=== PATIENT | female | born 1970 | race Caucasian/White ===

== ENCOUNTER 2017-09-11 18:34 | Emergency (ER) | payer OTHER ==
[2017-09-11 18:42] VITALS: BMI 22.6
[2017-09-11] MEDS ORDERED: ALBUTEROL SO4 2.5/IPRATROPIUM 0.5 INH SOL 3 ML VIAL.NEB. NEB ONE ×3 (18:47→20:07)
--- NOTE | 2017-09-11 19:19 | PDOC ---
History of Present Illness - General Chief Complaint: Asthma Stated Complaint: ASTHMA Time Seen by Provider: 09/11/17 19:18 History Source: Patient Exam Limitations: Language Barrier (lebanese speaking ) - History of Present Illness Initial Comments: 09/11/17 19:52 47 year old female [place] speaking with pmhx of asthma who presented to the ED after acute asthma attack after using clorocs. She complains of dry cough, sob, difficulty completing sentences after that prompt her to present to the ED. She denies any fever, chills , N/V/D/C. 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 PMH:Asthma PSH: FH:asthma , DM, pulmonary edema per pt Father when she was 5 years old. does not know the reason, siblings with asthma, BP and DM social: denies smoking, alcohol or drugs abuse. 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 Allergies: NKDA Meds: she use albuterol inhaler as needed for asthma attacks DD: Acute asthma exacerbation Work up: Duo neb x3 prednisone 50 mg once and dc her on 4 more days albuterol pump refill 09/11/17 19:58 09/11/17 20:06 09/11/17 20:15 Past History - Past Medical History Allergies/Adverse Reactions: Allergies Allergy/AdvReac Type Severity Reaction Status Date / Time No Known Allergies Allergy Verified 09/11/17 18:42 Home Medications: Ambulatory Orders Albuterol Sulfate Inhaler - [Ventolin HFA Inhaler -] 1 - 2 inh PO Q4H #1 inhaler 09/11/17 Albuterol Sulfate Inhaler - [Ventolin Hfa Inhaler -] 1 puff IH PRN 09/11/17 predniSONE [Deltasone -] 50 mg PO DAILY #20 tablet 09/11/17 Asthma: Yes COPD: No - Suicide/Smoking/Psychosocial Hx Smoking History: Never smoked *Physical Exam - Vital Signs Last Vital Signs Temp Pulse Resp BP Pulse Ox 98 F 108 H 20 137/88 100 09/11/17 18:38 09/11/17 18:38 09/11/17 18:38 09/11/17 18:38 09/11/17 18:38 *DC/Admit/Observation/Transfer Diagnosis at time of Disposition: Acute asthma exacerbation - Discharge Dispostion Disposition: HOME - Prescriptions Prescriptions: Albuterol Sulfate Inhaler - [Ventolin HFA Inhaler -] 1 - 2 inh PO Q4H #1 inhaler predniSONE [Deltasone -] 50 mg PO DAILY #20 tablet - Referrals - Patient Instructions Printed Discharge Instructions: Asthma -- Adult Additional Instructions: you presented to the ED for acute asthma exacerbation ( Asthma attack) you were treated with inhalers and prednisone and you have been improved you will be discharged home with four more days of prednisone 50 mg daily and albuterol inhaler 4 times daily for next 48 hours and then as needed. please avoid all substances that can induce asthma attack like cleaning substances , grass, chemical , dust, wine, take flue shot every year take your meds as prescribed If your symptoms worsen please return to ER [facility]. Print Language: CROATIAN - Post Discharge Activity
[2017-09-11 20:19] VITALS: BP 110/72; PULSE 92
--- NOTE | 2017-09-11 20:20 | PDOC ---
Attending Attestation - Resident Resident Name: Papo Rod - ED Attending Attestation I have performed the following: I have examined & evaluated the patient, The case was reviewed & discussed with the resident, I agree w/resident's findings & plan, Exceptions are as noted - HPI HPI: 09/11/17 20:09 The patient is a 47 year old female with history of asthma who presents to the ED complaining of shortness of breath and chest tightness that began this afternoon. Patient reports symptoms began after exposure to Clorox. States this feels consistent with prior asthma exacerbations. She received Duoneb in the ED with subsequent improvement of her symptoms. No fever or chills. No nausea. vomiting, or diarrhea. Upon my evaluation, pt reports complete resolution of symptoms. Currently denies CP/SOB. No leg swelling, no recent travel/immobilization. Not on OCPs/estrogen. No h/o DVT/PE. - Physicial Exam PE: 09/11/17 20:10 "GENERAL: Awake, alert, and fully oriented, in no acute distress HEAD: No signs of trauma EYES: PERRLA, EOMI, sclera anicteric, conjunctiva clear ENT: Auricles normal inspection, hearing grossly normal, nares patent, oropharynx clear without exudates. Moist mucosa NECK: Nontender, no stepoffs, Normal ROM, supple, no lymphadenopathy, JVD, or masses LUNGS: Breath sounds equal, clear to auscultation bilaterally. No wheezes, and no crackles HEART: Regular rate and rhythm, normal S1 and S2, no murmurs, rubs or gallops ABDOMEN: Soft, nontender, normoactive bowel sounds. No guarding, no rebound. No masses EXTREMITIES: Normal range of motion, no edema. No clubbing or cyanosis. No cords, erythema, or tenderness NEUROLOGICAL: Cranial nerves II through XII intact. 5/5 strength and sensation in all extremities, Normal speech, normal gait, normal cerebellar function SKIN: Warm, Dry, normal turgor, no rashes or lesions noted. " - Medical Decision Making 09/11/17 20:11 47 F with h/o asthma presenting with chest tightness and SOB, now completely resolved s/p nebs. Likely asthma exacerbation triggered by exposure to cleaning products. Pt with no infectious symptoms. No history of smoking to suggest COPD. No signs of volume overload. ACS unlikely as chest tightness resolved with nebulizers. Will obtain EKG to r/o ischemia. - Nebs, steroids - EKG 09/11/17 20:38 EKG with no signs of ischemia, NSR without MARTIN/STDs, no TWIs Pt reassessed - lungs continue to be clear Pt is well appearing, with normal vitals. Clinically stable for DC at this time. I discussed the physical exam findings, ancillary test results and final diagnoses with the patient. I answered all of the patient's questions. The patient was satisfied with the care received and felt comfortable with the discharge plan and treatment plan. The patient agrees to follow up with the primary care physician within 24-72 hours.
[2017-09-11 20:43] VITALS: TEMP 98.4
--- NOTE | 2017-09-12 21:34 | EKG ---
Test Reason : Blood Pressure : / mmHG Vent. Rate : 087 BPM Atrial Rate : 087 BPM P-R Int : 182 ms QRS Dur : 082 ms QT Int : 388 ms P-R-T Axes : 058 072 059 degrees QTc Int : 466 ms NORMAL SINUS RHYTHM NORMAL ECG NO PREVIOUS ECGS AVAILABLE Confirmed by OLI COLLADO MD ([id number]) on 09/12/2017 9:33:36 PM Referred By: Confirmed By:OLI COLLADO MD
== END 2017-09-11 20:43 | disposition home or self-care (01) ==
LOC: JER 18:34
PROC: 3E0F7GC Introduction of Other Therapeutic Substance into Respiratory Tract, Via Natural or Artificial Opening (ICD-10-PCS; principal; 2017-09-11)
PROC: 3E0F7GC Introduction of Other Therapeutic Substance into Respiratory Tract, Via Natural or Artificial Opening (ICD-10-PCS; 2017-09-11)
DX: J45.901 Unspecified asthma with (acute) exacerbation (principal)
CPT/HCPCS: 93005; 93010; 94640; 99282-25